=== PATIENT | female | born 1980 | race African-American/Black ===

== ENCOUNTER 2017-06-28 18:48 | Emergency (ER) | payer MEDICAID ==
[~2017-06-28] VITALS: Ht 157.5 cm; Wt 75.0 kg
[2017-06-28 19:20] VITALS: BP 163/88
[2017-06-28] MEDS ORDERED: KETOROLAC 60MG/2ML VIAL IM ONE (22:45)
== END 2017-06-29 00:01 | disposition home or self-care (01) ==
LOC: ER 21:09
DX: G43.909 Migraine, unspecified, not intractable, without status migrainosus (principal); M25.511 Pain in right shoulder; I10 Essential (primary) hypertension; E11.9 Type 2 diabetes mellitus without complications; J45.909 Unspecified asthma, uncomplicated; F17.200 Nicotine dependence, unspecified, uncomplicated
CPT/HCPCS: 81025; 96372; 99283; J1885

== ENCOUNTER 2018-02-08 16:12 | Emergency (ER) | payer MEDICAID ==
[~2018-02-08] VITALS: Ht 157.5 cm; Wt 73.0 kg
[2018-02-08 16:55] VITALS: BP 133/100
== END 2018-02-08 20:30 | disposition left against medical advice (07) ==
LOC: ER 16:12
DX: R51 Headache (principal); H53.149 Visual discomfort, unspecified
CPT/HCPCS: 99281

== ENCOUNTER 2018-04-19 09:26 | Emergency (ER) | payer MEDICAID ==
[~2018-04-19] VITALS: Ht 157.5 cm; Wt 71.0 kg
[2018-04-19] MEDS ORDERED: HYDROCODONE/ACETAMINOPHEN 5/325MG TABLET PO ONE (10:45)
[2018-04-19 11:07] VITALS: BP 152/91
== END 2018-04-19 12:34 | disposition home or self-care (01) ==
LOC: ER 09:26
DX: S10.83XA Contusion of other specified part of neck, initial encounter (principal); S20.221A Contusion of right back wall of thorax, initial encounter; V49.49XA Driver injured in collision with other motor vehicles in traffic accident, initial encounter; Y93.89 Activity, other specified; Y92.410 Unspecified street and highway as the place of occurrence of the external cause; R03.0 Elevated blood-pressure reading, without diagnosis of hypertension; F17.210 Nicotine dependence, cigarettes, uncomplicated
CPT/HCPCS: 81025; 99282

== ENCOUNTER 2018-08-27 15:48 | Emergency (ER) | payer MEDICAID ==
[~2018-08-27] VITALS: Ht 160 cm; Wt 70.0 kg
[2018-08-27 16:06] VITALS: BP 135/95
== END 2018-08-27 20:01 | disposition left against medical advice (07) ==
LOC: ER 15:48
DX: Z53.21 Procedure and treatment not carried out due to patient leaving prior to being seen by health care provider (principal)
CPT/HCPCS: 81025

== ENCOUNTER 2018-08-28 19:13 | Emergency (ER) | payer MEDICAID ==
[~2018-08-28] VITALS: Ht 160 cm; Wt 70.0 kg
[2018-08-28 19:40] VITALS: BP 152/85
[2018-08-28] MEDS ORDERED: IBUPROFEN 600MG TABLET PO STA (22:48)
[2018-08-28] MEDS ORDERED: TETRACAINE 0.5% OPHTH DROPS 4ML OP ONE (23:00)
[2018-08-28] MEDS ORDERED: FLUORESCEIN SODIUM 1MG/STRIP OP ONE (23:00)
[2018-08-28] MEDS ORDERED: BALANCED SALT IRRIG SOLN 15ML IO ONE (23:00)
[2018-08-29] MEDS ORDERED: LIDOCAINE HCL/PF 1% 10 MG/ML 5ML VIAL IJ NR (00:30)
[2018-08-29] MEDS ORDERED: CEFTRIAXONE SODIUM 1 G/VIAL IM NR (00:30)
== END 2018-08-29 00:54 | disposition home or self-care (01) ==
LOC: ER 19:13
DX: L03.213 Periorbital cellulitis (principal)
CPT/HCPCS: 70486; 96372; 99284; J0696; J3490

== ENCOUNTER 2021-04-02 21:18 | Emergency (ER) | payer MEDICAID | END 2021-04-02 22:30 | disposition left against medical advice (07) | LOC: ER 21:18 | DX: Z53.21 Procedure and treatment not carried out due to patient leaving prior to being seen by health care provider (principal) ==

== ENCOUNTER 2021-07-11 22:58 | Emergency (ER) | payer MEDICAID ==
[~2021-07-11] VITALS: Ht 157.5 cm; Wt 68.0 kg
[2021-07-12] MEDS ORDERED: IBUPROFEN 800MG TABLET PO ONE (03:15)
[2021-07-12 03:19] VITALS: BP 177/117
[2021-07-12] MEDS ORDERED: IBUP-2029 MT (04:03)
== END 2021-07-12 04:57 | disposition home or self-care (01) ==
LOC: ER 22:58
DX: S60.041A Contusion of right ring finger without damage to nail, initial encounter (principal); E11.9 Type 2 diabetes mellitus without complications; I10 Essential (primary) hypertension; J45.909 Unspecified asthma, uncomplicated; W01.0XXA Fall on same level from slipping, tripping and stumbling without subsequent striking against object, initial encounter; Y93.89 Activity, other specified; Y92.018 Other place in single-family (private) house as the place of occurrence of the external cause
CPT/HCPCS: 29130; 73130; 81025; 99283